=== PATIENT | female | born 1945 | race Caucasian/White ===

== ENCOUNTER → 2017-02-14 | Outpatient (CLI) | payer MEDICARE, BC ==
[~2017-02-14] MED LIST: ASPIRIN81 M1 PO; LIPITOR40 MG PO; NEXIUM PO; ZOCOR20 MG PO
--- NOTE | ~2017-02-14 | CT17 ---
[facility] A Service of [facility] & [facility] RADIOLOGY TEXT RESULTS PATIENT: BANG BACH LOCATION: [facility] : 43 UNIT #: [id number] AGE: [address]: Reji Rincon II, MD SEX: F ORDER DR: [id number] [facility] [address] [place], [place] [address] [id number] O MR#: [id number] Acc #: [id number] NAME: BANG BACH : 1945 SEX: F STUDY DATE/TIME: 02/14/2017 15:12 UNIT: [facility] ROOM: STUDY DESCRIPTION: CT Angio Head Attending Physician: Reji Rincon II., M.D. Referring Physician: Reji Rincon II., M.D. Ordering Physician: Reji Rincon II., M.D. Primary Care Physician: Matilde Prabhakar M.D. MEDICAL IMAGING REPORT This report is preliminary unless electronic signature is present EXAM CT angiogram of the head and neck HISTORY Aneurysm followup intracranial aneurysm for [address] scan 07/2015. Headache for 1 year aneurysm surgery 3 years ago per patient. COMMENT CT angiography of the head and neck vessels performed during the intravenous administration of 100 mL of Isovue-370 with imaging acquired in the axial plane followed by multiple reconstructed and reformatted images for the purpose of 3-D CT angiography of the head and neck vessels. This CT exam was performed with one or more of the following radiation dose reduction techniques: automatic control, adjustment of mA and/or kV according to patient size, and iterative reconstruction. The comparison study is from 07/11/2015. CT ANGIOGRAM NECK: The aortic arch branch pattern shows a bovine origin left common carotid artery. There is some vascular calcifications at the aortic arch. There is mild stenosis at the origin of the left subclavian. Evaluation of the right carotid system shows partially calcified plaque at the right carotid bifurcation. By NASCET criteria there is about 39% diameter stenosis. There is also some stenosis at the origin of the right external carotid artery and there is mild narrowing in the siphon due to calcified plaque. Assessment of the left carotid system shows mild plaque at the left carotid bifurcation but by NASCET criteria no hemodynamically significant stenosis is suspected. The left vertebral artery is patent throughout the neck and intracranially. There is hych-la-sdovcmcd stenosis over a short segment at its origin. The right vertebral artery is patent throughout the neck and intracranially and there may be mild stenosis at its origin. It also supplies the basilar. [facility] A Service of [facility] & [facility] RADIOLOGY TEXT RESULTS PATIENT: BANG BACH LOCATION: [facility] : 43 UNIT #: [id number] AGE: [address]: Reji Rincon II, MD SEX: F ORDER DR: Evaluation of the intracranial circulation shows no intracranial vascular cutoff. There is some calcified plaque at the left carotid siphon also with mild narrowing. There is a 2-3 mm aneurysm left side supraclinoid ICA expected location of the origin of the left posterior communicator. There is however no definite left posterior communicator present. No right posterior communicator is seen. 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 This is probably best seen on axial imaging, lying lateral to the proximal supraclinoid ICA about 3-4 mm dimension. I believe it is adjacent to the anterior clinoid process and the CT angiogram is limited for evaluation for this aneurysm given its location adjacent to the bone. Allowing for this it is probably not changed. In the future it is probably best followed with an MR angiogram if the patient is still a candidate. The dural venous sinuses are grossly patent. No other possible intracranial aneurysm is suspected. The fullness at the supraclinoid left ICA expected location origin of the posterior communicator is slightly more apparent than on prior study where it may have been about 2 mm. Attention to this small lesion is also recommended on followup. No focal central stenosis is suspected. No significant sized anterior communicating artery is identified. Patient has had cataract surgery bilaterally. Emphysematous changes are noted at the apices. Degenerative changes in the spine. 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 IMPRESSION 1. By NASCET criteria there is about 39% diameter stenosis at the right carotid bifurcation. Milder disease on the left without hemodynamically-significant narrowing by NASCET criteria. 2. 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 Allowing for the limitations of the CT angiogram due to the adjacent bones it is probably unchanged. I would suggest that it be followed in the future with an MR angiogram if the patient is still a candidate. 3. There is a small 2-3 mm probable aneurysm supraclinoid left ICA expected location origin of the left posterior communicator. No posterior communicator is seen. This is more apparent than on the previous study and may be slightly larger. Attention to this is also recommended on follow up study. 4. There is no focal central stenosis or distal intracranial vascular cutoff suspected. 5. Both vertebral arteries are patent and supply the basilar though there is probably some narrowing at least at the origin of the left vertebral artery from the subclavian. 6. Emphysema visualized upper lungs. [facility]. [facility] A Service of [facility] RADIOLOGY TEXT RESULTS PATIENT: BANG BACH LOCATION: [facility] : 43 UNIT #: [id number] AGE: [address]: Reji Rincon II, MD SEX: F ORDER DR: Dictated by... Jessica Lopez M.D. THIS IS AN ELECTRONICALLY VERIFIED REPORT Jessica Lopez M.D. at 02/18/2017 4:53 PM BENOIT/monique TD: 02/16/2017 03:56 JOB #: [id number] MEDICAL IMAGING REPORT Page 1 of 1 COPY
--- NOTE | ~2017-02-14 | CT23 ---
[facility] A Service of [facility] & [facility] RADIOLOGY TEXT RESULTS PATIENT: BANG BACH [facility] 44 UNIT #: [id number] AGE: [address]: Reji Rincon II, MD SEX: F ORDER DR: [id number] [facility] [address] [place], [place] [address] [id number] O MR#: [id number] Acc #: [id number] NAME: BANG BACH : 1945 SEX: F STUDY DATE/TIME: 02/14/2017 15:12 UNIT: [facility] ROOM: STUDY DESCRIPTION: CT Angio Neck Attending Physician: Reji Rincon II., M.D. Referring Physician: Reji Rincon II., M.D. Ordering Physician: Reji Rincon II., M.D. Primary Care Physician: Matilde Prabhakar M.D. MEDICAL IMAGING REPORT This report is preliminary unless electronic signature is present EXAM CTA neck Please see CTA head for results. Dictated by... Jessica Lopez M.D. THIS IS AN ELECTRONICALLY VERIFIED REPORT Jessica Lopez M.D. at 02/18/2017 4:55 PM BENOIT/monique TD: 02/16/2017 03:59 JOB #: [id number] MEDICAL IMAGING REPORT Page 1 of 1 COPY
[2017-02-14 15:41] LABS: POC - CREATININE 0.88 mg/dL (0.44-1.03); POC - GFR >60.0 mL/min (>60)
== END | disposition home or self-care (01) ==
LOC: CCAT 13:50
PROVIDERS: Psychiatry & Neurology Neurology
DX: I67.1 Cerebral aneurysm, nonruptured (principal); J43.9 Emphysema, unspecified; I65.21 Occlusion and stenosis of right carotid artery; I72.0 Aneurysm of carotid artery
CPT/HCPCS: 70496; 70498; 82565; Q9967